=== PATIENT | male | born 1980 | race Caucasian/White ===

== ENCOUNTER 2021-05-14 09:40 | Inpatient (IN) | payer OTHER ==
[2021-05-14 10:54] LABS: Urine Blood Negative (Negative); Urine Glucose Negative (Negative); Urine Protein Negative (Negative); Urine Specific Gravity >=1.030 (1.005-1.030); Urine pH 6.5 (5.0-7.0)
[2021-05-14] MEDS ORDERED: NA CHLORIDE 0.9% 1,000 ML ONE ×2 (11:45→14:02)
[2021-05-14] MEDS ORDERED: MORPHINE 4 MG/ML SYR ONE ×2 (11:45→14:02)
[2021-05-14] MEDS ORDERED: ONDANSETRON 4 MG/2 ML VIAL ONE ×2 (11:45→20:30)
[2021-05-14 13:22] LABS: Absolute Lymphocytes (CBC) 1.6 K/uL (0.7-4.9); Basophils % 0.9 % (0-1.3); Hematocrit 38.5 % (39.6-49.0); Lymphocytes % 20.8 % (15.3-44.8); MPV 9.7 fL (7.6-11.3); RBC Red Blood Cell Count 4.29 M/uL (4.33-5.43)
--- NOTE | 2021-05-14 13:22 | RAD REPORT ---
EXAM DESCRIPTION: CT - Abdomen Pelvis W Contrast - 05/14/2021 1:07 pm CLINICAL HISTORY: ABD PAIN COMPARISON: No comparisons TECHNIQUE: Biphasic, helical CT imaging of the abdomen and pelvis was performed following 100 ml non -ionic IV contrast. Oral contrast administered. All CT scans are performed using dose optimization technique as appropriate and may include automated exposure control or mA/KV adjustment according to patient size. FINDINGS: No suspicious findings in the lung bases. Liver shows diffuse fatty infiltration with no focal lesion. No portal vein abnormality. Gallbladder and biliary tree show no suspicious findings. No splenic abnormality. No mass of the pancreatic paren chyma identified. Mild congestion or edema changes are present in the fatty tissues adjacent to the uncinate process of the pancreas and third portion of the duodenum. No peripancreatic solid or cystic mass identified. Symmetric renal function is seen with no hydronephrosis or suspicious renal mass. No pyelonephritis o r acute parenchymal process. No bladder abnormalities. No adrenal abnormalities. Gastric sleeve surgical changes are noted. No gastric abnormality seen. Small bowel loops are not dil ated. No wall thickening or adjacent stranding seen in the small bowel except for the above-mentioned duodenal change. Appendix is normal. Oral contrast has reached the distal rectum. Tortuous and redun dant sigmoid colon noted. Villatoro of the colon are mildly prominent in the rectum and distal sigmoid co maxine probably from incomplete distention. No free air, free fluid or pneumatosis. No large hernia, mass or bulky lymphadenopathy. Patient sparks s had minimal fat only right inguinal hernia. No suspicious bony findings. IMPRESSION: Stranding is seen in the fatty tissues adjacent to the uncinate process of the pancreas and adjacent third portion duodenum. Mild pancreatitis with secondary involvement of the duodenum wo uld be more common than primary duodenitis. Correlation is needed with clinical or laboratory finding s. There is minimal prominence of the distal sigmoid and rectal villatoro probably from incomplete distentio n rather than colitis. Diffuse fatty infiltration of the liver.
[2021-05-14 13:23] LABS: Albumin 3.2 g/dL (3.4-5.0); Bilirubin Direct 0.2 mg/dL (0-0.2); Bilirubin Total 1.5 mg/dL (0.2-1.0); Protein, Total 6.9 g/dL (6.4-8.2)
[2021-05-14 13:26] LABS: Potassium 4.6 mmol/L (3.5-5.1)
[2021-05-14 13:30] LABS: Blood Morphology Comment NOT SEEN (NOT SEEN); Platelet Estimate DECR
--- NOTE | 2021-05-14 13:45 | ER ---
Nurse's Notes [facility] Name: Aaron Hernandez Age: 40 yrs Sex: Male : 1980 Arrival Date: 05/14/2021 Time: 09:43 Bed 24 Private MD: Diagnosis: Acute pancreatitis without necrosis or infection, unspecified Presentation: 05/14 09:54 Chief complaint: Patient states: ABD pain began yesterday, states has been constipated vg1 for the past two days. States pain is intermittent. Denies diarrhea but states NV. Also patient stated has had a cough x1 month. Coronavirus screen: Vaccine status: Patient reports receiving the 2nd dose of the covid vaccine. Client presents with at least one sign or symptom that may indicate coronavirus-19. Standard/surgical mask placed on the client. Ebola Screen: Patient negative for fever greater than or equal to 101.5 degrees Fahrenheit, and additional compatible Ebola Virus Disease symptoms. Initial Sepsis Screen: Does the patient meet any 2 criteria? No. Patient's initial sepsis screen is negative. Does the patient have a suspected source of infection? No. Patient's initial sepsis screen is negative. Risk Assessment: Do you want to hurt yourself or someone else? Patient reports no desire to harm self or others. Onset of symptoms was May 12, 2021. 09:54 Method Of Arrival: Ambulatory vg1 09:54 Acuity: ALIYAH 3 vg1 Triage Assessment: 09:57 General: Appears in no apparent distress. uncomfortable, Behavior is calm, cooperative. vg1 Pain: Complains of pain in abdomen. GI: Abdomen is non-distended. Historical: - Allergies: 09:57 No Known Allergies; vg1 - Home Meds: 09:57 Protonix Oral [Active]; Debra Oral [Active]; Lisinopril Oral [Active]; ibuprofen 600 vg1 mg Oral tab PRN [Active]; - PMHx: 09:57 Hypertensive disorder; Gastritis; vg1 - Immunization history:: Adult Immunizations up to date, Client reports receiving the 2nd dose of the Covid vaccine. - Social history:: Smoking status: Patient denies any tobacco usage or history of. Screenin:51 Abuse screen: Denies threats or abuse. Denies injuries from another. Nutritional bc5 screening: No deficits noted. Tuberculosis screening: No symptoms or risk factors identified. Fall Risk No fall in past 12 months (0 pts). No secondary diagnosis (0 pts). IV access (20 points). Ambulatory Aid- None/Bed Rest/Nurse Assist (0 pts). Gait- Normal/Bed Rest/Wheelchair (0 pts) Mental Status- Oriented to own ability (0 pts). Total Bonds Fall Scale indicates No Risk (0-24 pts). Assessment: 19:52 GI: Bowel sounds present X 4 quads. Abd is non tender X 4 quads. bc5 20:42 Reassessment: Report called to Bud DOMINGO, Pt to room 222. bc5 Vital Signs: 09:54 BP 138 / 96; Pulse 84; Resp 18; Temp 97.6; Pulse Ox 100% ; Weight 97.52 kg; Height 6 vg1 ft. 3 in. (190.50 cm); Pain 4/10; 19:53 BP 135 / 89; Pulse 81; Resp 17; Temp 98(O); Pulse Ox 100% on R/A; Pain 7/10; bc5 09:54 Body Mass Index 26.87 (97.52 kg, 190.50 cm) vg1 ED Course: 09:43 Patient arrived in ED. rg4 09:56 Triage completed. vg1 09:57 Arm band placed on. vg1 10:04 Artie Bacon NP is PHCP. pm1 10:04 Lambert Vásquez MD is Attending Physician. pm1 11:04 Jayda Charles, JOSE L is Primary Nurse. es2 11:59 Lab(s) recollected, by me, sent to lab. dh3 13:06 CT Abd/Pelvis - PO and IV Contrast In Process Unspecified. EDMS 13:45 Sheila Cuellar MD is Hospitalizing Provider. pm1 15:36 C-Reactive Protein Sent. es2 19:52 Patient has correct armband on for positive identification. Call light in reach. bc5 19:52 No provider procedures requiring assistance completed. bc5 05/15 07:51 Primary Nurse role handed off by Jayda Charles, JOSE L bd 08:08 Sabiha Larios, JOSE L is Primary Nurse. oh Administered Medications: 05/14 11:23 Drug: morphine 4 mg Route: IVP; Site: left forearm; tr6 11:23 Drug: Zofran (Ondansetron) 4 mg Route: IVP; Site: left forearm; tr6 11:23 Drug: NS 0.9% 1000 ml Route: IV; Rate: 1000 ml; Site: left forearm; tr6 13:25 CANCELLED (Physician Discretion): ProTONIX (pantoprazole) 40 mg IVP once pm1 13:26 Not Given (Physician Discretion): ProTONIX (pantoprazole) 8 mg/hr IV at 25 ml/hr pm1 continuous; (Standard dilution is 80 mg in 250 mL NS) 13:41 Drug: morphine 4 mg {Note: Rass 0.} Route: IVP; Site: left forearm; es2 13:41 Drug: NS 0.9% 1000 ml Route: IV; Rate: 125 ml/hr; Site: left forearm; es2 15:36 Follow up: Response: No adverse reaction; IV Status: IV converted to saline lock es2 Outcome: 13:45 Decision to Hospitalize by Provider. pm1 20:43 Patient left the ED. bc5 05/15 19:49 [facility] left the [facility]. [facility] Signatures: Dispatcher [employer] EDMS Marika Galaviz Patrick, ROVERTO FOREIGN BROADCAST SPECIALIST pm1 Susan Nails 4 Carol Cervantes 3 Angélica Nails RN RN vg1 Candi Hartman RN RN tr6 Tennille Velazquez RN RN bc5 Jayda Charles RN RN es2 Sabiha Larios RN RN oh
--- NOTE | 2021-05-14 13:45 | EDPHYS ---
Physician Documentation [facility] Name: Aaron Hernandez Age: 40 yrs Sex: Male : 1980 Arrival Date: 05/14/2021 Time: 09:43 Bed 24 Private MD: ED Physician Lambert Vásquez HPI: 05/14 12:26 This 40 yrs old Male presents to ER via Ambulatory with complaints of pm1 Abdominal Pain. 12:26 The patient presents with abdominal pain in the left upper quadrant, in the left lower pm1 quadrant. Onset: The symptoms/episode began/occurred yesterday. The symptoms do not radiate. Associated signs and symptoms: Pertinent positives: constipation, Pertinent negatives: nausea and vomiting, dysuria, fever. The symptoms are described as achy. Modifying factors: The symptoms are alleviated by nothing, the symptoms are aggravated by nothing. Severity of pain: in the emergency department the pain is actually worse. The patient has not experienced similar symptoms in the past. The patient has not recently seen a physician. Historical: - Allergies: 09:57 No Known Allergies; vg1 - Home Meds: :57 Protonix Oral [Active]; Debra Oral [Active]; Lisinopril Oral [Active]; ibuprofen 600 vg1 mg Oral tab PRN [Active]; - PMHx: 09:57 Hypertensive disorder; Gastritis; vg1 - Immunization history:: Adult Immunizations up to date, Client reports receiving the 2nd dose of the Covid vaccine. - Social history:: Smoking status: Patient denies any tobacco usage or history of. ROS: 12:26 Constitutional: Negative for fever, chills, and weight loss, Cardiovascular: Negative pm1 for chest pain, palpitations, and edema, Respiratory: Negative for shortness of breath, cough, wheezing, and pleuritic chest pain. 12:26 Back: Negative for injury and pain, : Negative for injury, bleeding, discharge, and swelling, MS/Extremity: Negative for injury and deformity, Skin: Negative for injury, rash, and discoloration, Neuro: Negative for headache, weakness, numbness, tingling, and seizure. 12:26 Abdomen/GI: Positive for abdominal pain, constipation, Negative for nausea, vomiting, and diarrhea. 12:26 All other systems are negative. Exam: 12:26 Constitutional: This is a well developed, well nourished patient who is awake, alert, pm1 and in no acute distress. Head/Face: Normocephalic, atraumatic. 12:26 Skin: Warm, dry with normal turgor. Normal color with no rashes, no lesions, and no evidence of cellulitis. MS/ Extremity: Pulses equal, no cyanosis. Neurovascular intact. Full, normal range of motion. 12:26 Eyes: Exam is negative for acute changes, Extraocular movements: no acute changes, Conjunctiva: no acute changes, no injection. 12:26 ENT: Exam is negative for acute changes, Mouth: no acute changes, Lips: normal, moist, Oral mucosa: normal, pink and intact, moist. 12:26 Cardiovascular: Exam negative for acute changes, Rate: normal, Rhythm: regular, Pulses: no pulse deficits are appreciated. 12:26 Respiratory: Exam negative for acute changes, respiratory distress, shortness of breath. 12:26 Abdomen/GI: Inspection: abdomen appears normal, Palpation: soft, in all quadrants, mild abdominal tenderness, in the left upper quadrant, moderate abdominal tenderness, in the left lower quadrant. 12:26 Neuro: Exam negative for acute changes, Orientation: is normal, Mentation: is normal, Motor: is normal, moves all fours. Vital Signs: 09:54 BP 138 / 96; Pulse 84; Resp 18; Temp 97.6; Pulse Ox 100% ; Weight 97.52 kg; Height 6 vg1 ft. 3 in. (190.50 cm); Pain 4/10; 19:53 BP 135 / 89; Pulse 81; Resp 17; Temp 98(O); Pulse Ox 100% on R/A; Pain 7/10; bc5 09:54 Body Mass Index 26.87 (97.52 kg, 190.50 cm) vg1 MDM: 10:12 Patient medically screened. pm1 10:12 Data reviewed: vital signs. Data interpreted: Pulse oximetry: on room air is 100 %. pm1 Interpretation: normal. 13:43 Counseling: I had a detailed discussion with the patient and/or guardian regarding: the pm1 historical points, exam findings, and any diagnostic results supporting the discharge/admit diagnosis, lab results, radiology results, the need for further work-up and treatment in the hospital. 13:43 Physician consultation: Hellen Amie regarding admission, patient's condition, and will pm1 see patient in ED. 05/14 10:04 Order name: Basic Metabolic Panel; Complete Time: 13:39 pm1 05/14 10:04 Order name: CBC with Diff; Complete Time: 13:39 pm1 05/14 10:04 Order name: Hepatic Function; Complete Time: 13:39 pm1 05/14 10:04 Order name: Lipase; Complete Time: 13:39 pm1 05/14 10:54 Order name: Urine Dipstick-Ancillary; Complete Time: 10:55 EDMS 05/14 13:22 Order name: Manual Differential; Complete Time: 13:39 EDMS 05/14 14:15 Order name: Amylase; Complete Time: 17:50 EDMS 05/14 14:16 Order name: CBC with Automated Diff EDMS 05/14 14:16 Order name: CBC with Automated Diff; Complete Time: 10:34 EDMS 05/14 14:16 Order name: Comprehensive Metabolic Panel EDMS 05/14 14:16 Order name: Comprehensive Metabolic Panel; Complete Time: 10:34 EDMS 05/14 14:16 Order name: Lipid Profile EDMS 05/14 14:16 Order name: Lipid Profile EDMS 05/14 14:16 Order name: Protime (+INR) EDMS 05/14 14:16 Order name: Protime (+INR); Complete Time: 10:34 EDMS 05/14 14:16 Order name: PTT, Activated Partial Thromb EDMS 05/14 14:16 Order name: PTT, Activated Partial Thromb; Complete Time: 10:34 EDMS 05/14 14:17 Order name: Lactic Dehydrogenase; Complete Time: 17:50 EDMS 05/14 14:17 Order name: C-Reactive Protein; Complete Time: 17:50 EDMS 05/14 14:17 Order name: Lipid Profile EDMS 05/14 14:24 Order name: COVID-19 : Document "Date of Symptom Onset" if Symptomatic. eb 05/14 17:28 Order name: Glucose, Ancillary Testing; Complete Time: 17:35 EDMS 05/14 17:44 Order name: Magnesium; Complete Time: 17:50 EDMS 05/14 17:52 Order name: Lipid Profile; Complete Time: 10:34 EDMS 05/14 18:02 Order name: LDL, Direct; Complete Time: 10:34 EDMS 05/14 19:32 Order name: SARS-COV-2 RT PCR; Complete Time: 10:34 EDMS 05/15 01:59 Order name: Glucose, Ancillary Testing; Complete Time: :34 EDMS 05/15 03:24 Order name: Glucose, Ancillary Testing; Complete Time: :34 EDMS 05/15 04:30 Order name: Glucose, Ancillary Testing; Complete Time: 10:34 EDMS 05/15 05:23 Order name: Glucose, Ancillary Testing; Complete Time: 10:34 EDMS 05/14 10:04 Order name: IV Saline Lock; Complete Time: 11:03 pm1 05/14 10:04 Order name: Labs collected and sent; Complete Time: 11:03 pm1 05/14 10:15 Order name: Urine Dipstick-Ancillary (obtain specimen); Complete Time: 11:03 pm1 05/14 10:15 Order name: CT Abd/Pelvis - PO and IV Contrast; Complete Time: 13:23 pm1 05/14 13:29 Order name: NPO; Complete Time: 13:50 pm1 05/14 14:16 Order name: NPO; Complete Time: 19:25 EDMS 05/15 06:22 Order name: Glucose, Ancillary Testing; Complete Time: 10:34 EDMS 05/15 07:06 Order name: CREATININE WHOLE BLOOD; Complete Time: 10:34 EDMS 05/15 07:24 Order name: Glucose, Ancillary Testing; Complete Time: :34 EDMS 05/15 08:00 Order name: Lipid Profile; Complete Time: 10:34 EDMS 05/15 08:11 Order name: LDL, Direct; Complete Time: 10:34 EDMS 05/15 08:46 Order name: Glucose, Ancillary Testing; Complete Time: 10:34 EDMS 05/15 09:42 Order name: Lipase; Complete Time: 10:34 EDMS 05/15 10:09 Order name: Glucose, Ancillary Testing; Complete Time: 10:34 EDMS 05/15 11:41 Order name: Glucose, Ancillary Testing; Complete Time: 13:18 EDMS 05/15 14:00 Order name: Glucose, Ancillary Testing; Complete Time: 14:05 EDMS 05/15 15:21 Order name: Glucose, Ancillary Testing; Complete Time: 16:35 EDMS 05/15 17:06 Order name: Glucose, Ancillary Testing; Complete Time: 17:15 EDMS 05/15 17:43 Order name: Triglycerides Level EDMS 05/15 17:49 Order name: Lipase EDMS 05/15 17:52 Order name: LDL, Direct EDMN 05/15 19:00 Order name: Glucose, Ancillary Testing EDMS Administered Medications: 11:23 Drug: morphine 4 mg Route: IVP; Site: left forearm; tr6 11:23 Drug: Zofran (Ondansetron) 4 mg Route: IVP; Site: left forearm; tr6 11:23 Drug: NS 0.9% 1000 ml Route: IV; Rate: 1000 ml; Site: left forearm; tr6 13:25 CANCELLED (Physician Discretion): ProTONIX (pantoprazole) 40 mg IVP once pm1 13:26 Not Given (Physician Discretion): ProTONIX (pantoprazole) 8 mg/hr IV at 25 ml/hr pm1 continuous; (Standard dilution is 80 mg in 250 mL NS) 13:41 Drug: morphine 4 mg {Note: Rass 0.} Route: IVP; Site: left forearm; es2 13:41 Drug: NS 0.9% 1000 ml Route: IV; Rate: 125 ml/hr; Site: left forearm; es2 15:36 Follow up: Response: No adverse reaction; IV Status: IV converted to saline lock es2 Disposition Summary: 05/14/21 13:45 Hospitalization Ordered Hospitalization Status: Inpatient Admission pm1 Provider: Sheila Cuellar pm1 Condition: Stable pm1 Problem: new pm1 Symptoms: have improved pm1 Bed/Room Type: Standard pm1 Location: Telemetry/MedSurg (Inpatient)(05/15/21 19:09) Room Assignment: 421(05/15/21 19:09) Diagnosis - Acute pancreatitis without necrosis or infection, unspecified pm1 Forms: - Medication Reconciliation Form pm1 - SBAR form pm1 Addendum: 05/18/2021 01:57 Co-signature as Attending Physician, Lambert Vásquez MD I agree with the assessment and r n plan of care. Attestation: The patient's history, exam findings, diagnostics, and a summary of any interventions or procedures was reviewed in detail with Artie Bacon NP. Signatures: Dispatcher [facility] Gracie Farrell RN RN mw Nieto, Roman, MD MD rn Marinas, Patrick, INVENTORY SPECIALIST INVENTORY SPECIALIST pm1 Angélica Nails RN RN vg1 Romero Cheema tt3 Candi Hartman RN RN tr6 Jayda Charles RN RN es2 Corrections: (The following items were deleted from the chart) 05/14 13:14 13:12 Abdomen/GI: Rectal exam: rectal tone normal, Stool: brown, guaiac positive, pm1 tenderness, is not appreciated, pm1 13:25 13:12 ProTONIX (pantoprazole) 40 mg IVP once ordered. pm1 pm1 19:39 13:45 pm1 mw 05/15 00:51 05/14 13:45 Telemetry/MedSurg (Inpatient) pm1 tt3 05/15 00:51 05/14 19:39 222 mw tt3 05/15 19:09 00:51 BR ER HOLD tt3 mw 19: 00:51 ERHOLD- tt3 mw
--- NOTE | 2021-05-14 14:05 | P.HP ---
Certification for Inpatient With expected LOS: >2 Midnights Patient will require the following post-hospital care: None Practitioner: I am a practitioner with admitting privileges, knowledge of patient current condition, hospital course, and medical plan of care. Services: Services provided to patient in accordance with Admission requirements found in Title 42 Section 412.3 of the Code of Federal Regulations <Hellen Holloway - Last Filed: 05/14/21 15:34> Patient History Date of Service: 05/14/21 Primary Care Provider: MILAGRO Reason for admission: abdominal pain History of Present Illness: 40-year-old white male with past medical history of hyperlipidemia, hypertension, hypertriglyceridemia, acute pancreatitis in September 2019 who presented to the ED after 1 day of severe abdominal pain, nausea, vomiting. He stated that yesterday after being in his usual state of health he began to experience sharp left upper quadrant abdominal pain that radiated to the left lower quadrant. The pain waxed and waned and was about a 7/10 and more intense this morning than yesterday. The pain was sudden and he took ibuprofen with no relief. His abdominal pain continued and he developed nausea and then vomited 3 times yesterday before going to sleep. Overnight his abdominal pain worsen and he decided to come to ED for further evaluation. He was able to drink water and keep it down. He denies chest pain, fever, shortness of breath, melena, hematochezia, diarrhea. He endorses mild constipation. He has history of acute pancreatitis last year September 2019 before the pandemic started. He reports history of high cholesterol, high triglycerides for which he does not take any medication. He was trying to control his cholesterol with diet and exercise. Denies smoking or alcohol. Upon arrival to the ED, Mr. Hernandez was placed on IV fluids, given morphine 2 mg, Zofran 4 mg. Radiological images were obtained through an abdominal CT scan which revealed mild pancreatitis, diffuse fatty infiltration of the liver. His lab work was noted for lipase of 2557, elevated liver enzymes. He will be admitted to medicine floor for further evaluation. He is fully vaccinated against Covid. 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 <Hellen Holloway - Last Filed: 05/14/21 15:34> Date of Service: 05/14/21 <Sheila Cuellar - Last Filed: 05/15/21 04:18> Review of Systems General: Unremarkable Eyes: Unremarkable ENT: Unremarkable Respiratory: Unremarkable Cardiovascular: Unremarkable Gastrointestinal: Nausea, Vomiting, Abdominal Pain, No Distention Musculoskeletal: Unremarkable Integumentary: Unremarkable Neurological: Unremarkable <Hellen Holloway - Last Filed: 05/14/21 15:34> Physical Examination - Physical Exam General: Alert, In no apparent distress, Oriented x3, Cooperative HEENT: Atraumatic, Normocephalic, PERRLA, Mucous membr. moist/pink, EOMI, Sclerae nonicteric Neck: Supple, 2+ carotid pulse no bruit, JVD not distended Respiratory: Clear to auscultation bilaterally, Normal air movement Cardiovascular: No edema, Normal pulses, Regular rate/rhythm Gastrointestinal: Normal bowel sounds, Non-distended, No ascites, No masses, No rebound, Tenderness (No evidence of Mejia's or Kranthi sign), Guarding Musculoskeletal: No clubbing, No swelling, No contractures, No erythema, No tenderness, No warmth Integumentary: No rashes, No breakdown, No significant lesion, No tenderness/swelling Neurological: Normal gait, Normal speech, Normal strength at 5/5 x4 extr - Studies Laboratory Data (last 24 hrs) 05/14/21 12:40: WBC 7.80, Hgb 12.6 L, Hct 38.5 L, Plt Count 126 L 05/14/21 12:40: Sodium 138, Potassium 4.6, BUN 16, Creatinine 0.94, Glucose 104, Total Bilirubin 1.5 H, AST 362 H*, ALT 154 H, Alkaline Phosphatase 87, Lipase 2557 H <AmieHellen - Last Filed: 05/14/21 15:34> - Studies Laboratory Data (last 24 hrs) 05/14/21 21:47: Triglycerides 3832 H, LDL Cholesterol Direct 157 H, Lipase 3473 H 05/14/21 16:29: Magnesium Cancelled, Triglycerides > 4000 H, Cholesterol 420 H, LDL Cholesterol Direct 150 H, HDL Cholesterol 29 L, Cholesterol/HDL Ratio 14.48 05/14/21 16:29: Magnesium 1.8, Triglycerides Cancelled, Cholesterol Cancelled, HDL Cholesterol Cancelled, Cholesterol/HDL Ratio Cancelled, Amylase 157 H 05/14/21 12:40: WBC 7.80, Hgb 12.6 L, Hct 38.5 L, Plt Count 126 L 05/14/21 12:40: Sodium 138, Potassium 4.6, BUN 16, Creatinine 0.94, Glucose 104, Total Bilirubin 1.5 H, AST 362 H*, ALT 154 H, Alkaline Phosphatase 87, Lipase 2557 H <Sheila Cuellar - Last Filed: 05/15/21 04:18> Assessment and Plan - Plan Assessment: Mr. Hernandez is a 40-year-old white male with past medical history of hypertension, hyperlipidemia, hypertriglyceridemia, history of acute pancreatitis September 2019 presenting for abdominal pain. His work-up is noted for acute pancreatitis with elevated lipase and liver enzyme. Plan: 1. Acute pancreatitis: CT scan noted for mild pancreatitis, fatty liver. No evidence of cholelithiasis, cholangitis T bili elevated NPO for now Monitor I's and O's IV fluids with lactated Ringer's Pain control with morphine as needed Nausea control with Zofran as needed GI consult placed. Awaiting recommendations LDH, CRP pending 2. Hyperlipidemia: Lipid panel pending May need to start on statin or fenofibrate and continue outpatient [employer] on low-fat diet 3. Elevated liver enzymes: Likely secondary to fatty liver disease GI consult placed. Awaiting recommendations PT/PTT/INR pending 4. Hypertension: Continue home meds Discharge Plan: Home Plan to discharge in: 48 Hours - Advance Directives Does patient have a Living Will: No Does patient have a Durable POA for Healthcare: No <Hellen Holloway - Last Filed: 05/14/21 15:34> Date of Service: 05/14/21 Subjective: Agree with HPI as mentioned above Physical Examination: Vitals: Afebrile vital signs are stable Physical exam: Cardiovascular: Within normal limits. Lungs: Within normal limits Abdomen: Epigastric tenderness Neuro: Awake, alert, oriented to person place and time Assessment: 1. Acute pancreatitis secondary to hypertriglyceridemia 2. Elevated LFTs Plan: 1. Continue with current plan of care with aggressive IV hydration and pain control 2. Keep in ICU on insulin drip 3. Monitor triglyceride levels every 6 hr 4. Monitor lipase daily 5. Accu-Cheks q.1 hr 6. Continue with fish oil/will hold Lopid if LFTs continue to rise 7. GI and DVT prophylaxis <Sheila Cuellar - Last Filed: 05/15/21 04:18>
[2021-05-14] MEDS ORDERED: MORPHINE 2 MG/ML SYR IV PRN (14:06)
[2021-05-14] MEDS ORDERED: Ringers Lactate 1,000 ML IV SCH ×2 (15:00→19:53)
[2021-05-14 15:23] VITALS: BMI 26.9
[2021-05-14] MEDS ORDERED: Ringers Lactate 1,000 ML IV ONE (15:54)
[2021-05-14] MEDS ORDERED: PNEUMOCOCCAL VACCINE 0.5 ML IMVAC ONE (17:00)
[2021-05-14] MEDS ORDERED: INFLUENZA VACCINE (for 6+ mo) 0.5 ML DOSE IMVAC ONE ×2 (17:00→18:14)
[2021-05-14 17:43] LABS: Amylase 157 U/L (25-115)
[2021-05-14 17:44] LABS: C-Reactive Protein < 2.90 mg/L (<3.00); Magnesium 1.8 mg/dL (1.8-2.4)
[2021-05-14 17:51] LABS: HDL Cholesterol 29 mg/dL (40-60)
[2021-05-14 18:02] LABS: LDL, Direct 150 mg/dL (100-129)
[2021-05-14] MEDS ORDERED: MORPHINE 2 MG/ML SYR ONE ×2 (18:18→20:30)
[2021-05-14] MEDS ORDERED: MORPHINE 4 MG/ML SYR IV ONE (19:34)
[2021-05-14] MEDS ORDERED: D50W 25 GM/50 ML SYRINGE IV PRN (19:54)
[2021-05-14] MEDS ORDERED: GLUCAGON 1 MG/VIAL IM PRN (19:54)
[2021-05-14] MEDS ORDERED: INSULIN -REGULAR HUMAN 100 UNIT in NA CHLORIDE 0.9% 100 ML IV SCH (20:00)
[2021-05-14] MEDS: ONDANSETRON 4 MG/2 ML VIAL IV PRN (20:09)
[2021-05-14] MEDS: D5 0.9 NS 1,000 ML IV SCH (22:13)
[2021-05-14] MEDS: gemfibroziL 600 MG TAB PO SCH (22:13)
[2021-05-14 22:23] LABS: Lipase 3473 U/L (73-393)
[2021-05-14 22:41] LABS: LDL, Direct 157 mg/dL (100-129)
[2021-05-14] MEDS: MORPHINE 4 MG/ML SYR IV PRN (23:59)
[2021-05-15] MEDS: D5 0.9 NS 1,000 ML IV SCH ×4 (01:00→20:18)
[2021-05-15] MEDS ORDERED: INSULIN -REGULAR HUMAN 50 UNIT/0.5 ML ML ONE (01:41)
[2021-05-15] MEDS ORDERED: NA CHLORIDE 0.9% 100 ML ONE (01:42)
[2021-05-15] MEDS: DOCOSAHEXANOIC AC/EPA 1000 MG PO SCH ×4 (01:50→20:18)
[2021-05-15] MEDS ORDERED: INSULIN -REGULAR HUMAN 100 UNIT in NA CHLORIDE 0.9% 100 ML IV SCH ×3 (01:57→07:34)
[2021-05-15] MEDS: MORPHINE 4 MG/ML SYR IV PRN (04:17)
[2021-05-15] MEDS: ONDANSETRON 4 MG/2 ML VIAL IV PRN ×3 (04:18→21:41)
[2021-05-15] MEDS ORDERED: FAMOTIDINE 20 MG/2 ML VIAL IV SCH ×2 (04:20→09:00)
[2021-05-15] MEDS ORDERED: ONDANSETRON 4 MG/2 ML VIAL ONE ×2 (04:33→10:13)
[2021-05-15] MEDS ORDERED: MORPHINE 4 MG/ML SYR ONE (04:33)
[2021-05-15 04:38] LABS: Absolute Lymphocytes (CBC) 1.4 K/uL (0.7-4.9); Basophils % 0.9 % (0-1.3); Hematocrit 35.2 % (39.6-49.0); Lymphocytes % 24.5 % (15.3-44.8); MPV 8.2 fL (7.6-11.3)
[2021-05-15 04:43] LABS: Protime INR 1.05
[2021-05-15] MEDS ORDERED: FAMOTIDINE 20 MG/2 ML VIAL IV ONE ×2 (04:54→11:59)
[2021-05-15] MEDS ORDERED: D5 0.9 NS 1,000 ML IV ONE ×2 (05:15→11:59)
[2021-05-15] MEDS ORDERED: SODIUM CHLORIDE 0.9% 10ML INJ IV PRN (06:36)
[2021-05-15 07:57] LABS: HDL Cholesterol 24 mg/dL (40-60)
[2021-05-15 08:11] LABS: LDL, Direct 148 mg/dL (100-129)
[2021-05-15] MEDS ORDERED: HYDROMORPHONE HCL 1 MG/ML INJ ONE ×3 (08:18→17:29)
[2021-05-15] MEDS: HYDROMORPHONE HCL 1 MG/ML INJ IV PRN ×4 (08:22→21:41)
[2021-05-15] MEDS: gemfibroziL 600 MG TAB PO SCH ×2 (09:00→20:16)
[2021-05-15] MEDS: PANTOPRAZOLE 40 MG INJ IVP SCH (09:00)
[2021-05-15] MEDS: FOLIC ACID 1 MG in NA CHLORIDE 0.9% 50 ML IV SCH (09:00)
[2021-05-15] MEDS: THIAMINE 200 MG/2 ML INJ IVP SCH (09:00)
[2021-05-15] MEDS ORDERED: PANTOPRAZOLE 40 MG INJ ONE (09:17)
[2021-05-15] MEDS ORDERED: FOLIC ACID 5 MG/ML VIAL ONE (09:19)
[2021-05-15] MEDS ORDERED: NA CHLORIDE 0.9% 50 ML ONE (09:19)
[2021-05-15] MEDS ORDERED: THIAMINE 200 MG/2 ML INJ ONE (09:25)
[2021-05-15 09:38] LABS: ALT/SGPT 100 U/L (12-78); Albumin 2.6 g/dL (3.4-5.0); Alkaline Phosphatase 64 U/L (45-117); BUN Blood Urea Nitrogen 8 mg/dL (7-18); Bicarbonate 24 mmol/L (21-32); Bilirubin Total 1.8 mg/dL (0.2-1.0); Glucose Level 134 mg/dL (74-106); Lipase 3755 U/L (73-393); Protein, Total 6.3 g/dL (6.4-8.2); Sodium Level 138 mmol/L (136-145)
[2021-05-15 09:39] LABS: Potassium 4.2 mmol/L (3.5-5.1)
[2021-05-15 09:40] LABS: AST/SGOT 172 U/L (15-37)
--- NOTE | 2021-05-15 16:54 | P.PN ---
Subjective Date of Service: 05/15/21 Primary Care Provider: [facility] Chief Complaint: abdominal pain Subjective: Improving Physical Examination - Vital Signs Temperature: 99.6 F Blood Pressure: 127/91 Pulse: 81 Respirations: 17 Pulse Ox (%): 95 - Studies Laboratory Data (last 24 hrs) 05/14/21 21:47: Triglycerides 3832 H, LDL Cholesterol Direct 157 H, Lipase 3473 H 05/14/21 16:29: Magnesium Cancelled, Triglycerides > 4000 H, Cholesterol 420 H, LDL Cholesterol Direct 150 H, HDL Cholesterol 29 L, Cholesterol/HDL Ratio 14.48 05/14/21 16:29: Magnesium 1.8, Triglycerides Cancelled, Cholesterol Cancelled, HDL Cholesterol Cancelled, Cholesterol/HDL Ratio Cancelled, Amylase 157 H Assessment & Plan Discharge Plan: Home Plan to discharge in: 72 Hours Physician Review Additional Text: COVID: Negative CT scan: COMPARISON: No comparisons TECHNIQUE: Biphasic, helical CT imaging of the abdomen and pelvis was performed following 100 ml non-ionic IV contrast. Oral contrast administered. All CT scans are performed using dose optimization technique as appropriate and may include automated exposure control or mA/KV adjustment according to patient size. FINDINGS: No suspicious findings in the lung bases. Liver shows diffuse fatty infiltration with no focal lesion. No portal vein abnormality. Gallbladder and biliary tree show no suspicious findings. No splenic abnormality. No mass of the pancreatic parenchyma identified. Mild congestion or edema changes are present in the fatty tissues adjacent to the uncinate process of the pancreas and third portion of the duodenum. No peripancreatic solid or cystic mass identified. Symmetric renal function is seen with no hydronephrosis or suspicious renal mass. No pyelonephritis or acute parenchymal process. No bladder abnormalities. No adrenal abnormalities. Gastric sleeve surgical changes are noted. No gastric abnormality seen. Small bowel loops are not dilated. No wall thickening or adjacent stranding seen in the small bowel except for the above-mentioned duodenal change. Appendix is normal. Oral contrast has reached the distal rectum. Tortuous and redundant sigmoid colon noted. Weston of the colon are mildly prominent in the rectum and distal sigmoid colon probably from incomplete distention. No free air, free fluid or pneumatosis. No large hernia, mass or bulky lymphadenopathy. Patient has had minimal fat only right inguinal hernia. No suspicious bony findings. IMPRESSION: Stranding is seen in the fatty tissues adjacent to the uncinate process of the pancreas and adjacent third portion duodenum. Mild pancreatitis with secondary involvement of the duodenum would be more common than primary duodenitis. Correlation is needed with clinical or laboratory findings. Physical Exam: GENERAL: The patient is a well-developed, well-nourished, in no apparent distre ss. Alert and oriented x3. VITAL SIGNS: Reviewed HEENT: Head is normocephalic and atraumatic. Extraocular muscles are intact. Pupils are equal, round, and reactive to light and accommodation. Nares appeared normal. Mouth is well hydrated and without lesions. Mucous membranes are moist. NECK: Supple. No carotid bruits. No lymphadenopathy or thyromegaly. LUNGS: Clear to auscultation. No crackles or wheezes are heard. HEART: Regular rate and rhythm, no appreciable gallops, rubs, murmurs or extra heart sounds ABDOMEN: Soft, nontender, and nondistended. Positive bowel sounds. No hepatosplenomegaly was noted. EXTREMITIES: Without any cyanosis, clubbing, rash, lesions or peripheral edema. NEUROLOGIC: The patient is oriented to person, place and time. Strength and sensation are grossly intact. Face is symmetric. SKIN: Normal color, turgor and temperature. No ulcerations or rashes noted. Impression: Acute hypertriglyceridemia pancreatitis Plan: Continue aggressive IV fluids. Continue to provide medication for pain. Patient remains on IV insulin. If improved will transition off insulin drip. Code Status: Full Code DVT prophylaxis: Lovenox Advanced Care Planning-30 minutes: Home at discharge Time Spent Managing Pts Care (In Minutes): 55
[2021-05-15] MEDS ORDERED: ENOXAPARIN 40 MG/0.4 ML SQ SCH (17:00)
[2021-05-15 17:52] LABS: LDL, Direct 76 mg/dL (100-129)
[2021-05-16] MEDS: HYDROMORPHONE HCL 0.5 MG/0.5 ML INJ IV PRN ×5 (01:52→19:59)
[2021-05-16] MEDS: D5 0.9 NS 1,000 ML IV SCH ×4 (01:55→20:00)
[2021-05-16 03:46] LABS: Basophils % 0.3 % (0-1.3); Lymphocytes % 18.8 % (15.3-44.8); MPV 8.8 fL (7.6-11.3); RBC Red Blood Cell Count 3.84 M/uL (4.33-5.43)
[2021-05-16 04:11] LABS: ALT/SGPT 76 U/L (12-78); Albumin 2.6 g/dL (3.4-5.0); Alkaline Phosphatase 58 U/L (45-117); BUN Blood Urea Nitrogen 3 mg/dL (7-18); Bicarbonate 27 mmol/L (21-32); Bilirubin Total 1.9 mg/dL (0.2-1.0); Glucose Level 121 mg/dL (74-106); Protein, Total 6.3 g/dL (6.4-8.2); Sodium Level 138 mmol/L (136-145)
[2021-05-16 04:22] LABS: AST/SGOT 99 U/L (15-37); Magnesium 1.8 mg/dL (1.8-2.4); Potassium 3.4 mmol/L (3.5-5.1)
[2021-05-16] MEDS: ONDANSETRON 4 MG/2 ML VIAL IV PRN ×2 (05:40→19:59)
[2021-05-16] MEDS ORDERED: MAGNESIUM SULFATE 1 gm IVPB 1 GM/100 ML BAG IV ONE (05:56)
--- NOTE | 2021-05-16 06:10 | P.PN ---
Subjective Date of Service: 05/16/21 Primary Care Provider: [facility] Chief Complaint: abdominal pain Subjective: Improving (No significant nausea or vomiting. Pain improved.) Physical Examination - Vital Signs Temperature: 98.6 F Blood Pressure: 138/90 Pulse: 74 Respirations: 18 Pulse Ox (%): 96 Assessment & Plan Discharge Plan: Home Plan to discharge in: 48 Hours Physician Review Additional Text: COVID: Negative CT scan: COMPARISON: No comparisons TECHNIQUE: Biphasic, helical CT imaging of the abdomen and pelvis was performed following 100 ml non-ionic IV contrast. Oral contrast administered. All CT scans are performed using dose optimization technique as appropriate and may include automated exposure control or mA/KV adjustment according to patient size. FINDINGS: No suspicious findings in the lung bases. Liver shows diffuse fatty infiltration with no focal lesion. No portal vein abnormality. Gallbladder and biliary tree show no suspicious findings. No splenic abnormality. No mass of the pancreatic parenchyma identified. Mild congestion or edema changes are present in the fatty tissues adjacent to the uncinate process of the pancreas and third portion of the duodenum. No peripancreatic solid or cystic mass identified. Symmetric renal function is seen with no hydronephrosis or suspicious renal mass. No pyelonephritis or acute parenchymal process. No bladder abnormalities. No adrenal abnormalities. Gastric sleeve surgical changes are noted. No gastric abnormality seen. Small bowel loops are not dilated. No wall thickening or adjacent stranding seen in the small bowel except for the above-mentioned duodenal change. Appendix is normal. Oral contrast has reached the distal rectum. Tortuous and redundant sigmoid colon noted. Weston of the colon are mildly prominent in the rectum and distal sigmoid colon probably from incomplete distention. No free air, free fluid or pneumatosis. No large hernia, mass or bulky lymphadenopathy. Patient has had minimal fat only right inguinal hernia. No suspicious bony findings. IMPRESSION: Stranding is seen in the fatty tissues adjacent to the uncinate process of the pancreas and adjacent third portion duodenum. Mild pancreatitis with secondary involvement of the duodenum would be more common than primary duodenitis. Correlation is needed with clinical or laboratory findings. Physical Exam: GENERAL: The patient is a well-developed, well-nourished, in no apparent distress. Alert and oriented x3. VITAL SIGNS: Reviewed HEENT: Neck supple LUNGS: Clear to auscultation. No crackles or wheezes are heard. HEART: Regular rate and rhythm, no appreciable gallops, rubs, murmurs or extra heart sounds ABDOMEN: Soft. Pain to the epigastric region improved. EXTREMITIES: Without any cyanosis, clubbing, rash, lesions or peripheral edema. NEUROLOGIC: The patient is oriented to person, place and time. Strength and sensation are grossly intact. Face is symmetric. SKIN: Normal color, turgor and temperature. No ulcerations or rashes noted. Impression: Acute hypertriglyceridemia pancreatitis Plan: Patient continues to improve. Triglyceride level below 800. Patient was transition off IV insulin. Will start clear liquid diet today. Encourage ambulation. Encourage incentive spirometer. Continue IV fluids. Will slowly advance diet over the next 24 to 48 hours. Continue treatment for hypertriglyceridemia. Code Status: Full Code DVT prophylaxis: Lovenox Advanced Care Planning-30 minutes: Home at discharge Time Spent Managing Pts Care (In Minutes): 55
[2021-05-16 07:42] LABS: LDL, Direct 96 mg/dL (100-129)
[2021-05-16] MEDS: PANTOPRAZOLE 40 MG INJ IVP SCH (08:45)
[2021-05-16] MEDS: DOCOSAHEXANOIC AC/EPA 1000 MG PO SCH ×3 (08:45→19:59)
[2021-05-16] MEDS: gemfibroziL 600 MG TAB PO SCH ×2 (08:46→19:59)
[2021-05-16] MEDS: LORATADINE 10 MG TAB PO SCH (08:47)
[2021-05-16] MEDS: FOLIC ACID 1 MG in NA CHLORIDE 0.9% 50 ML IV SCH (08:56)
[2021-05-16] MEDS: THIAMINE 200 MG/2 ML INJ IVP SCH (08:57)
[2021-05-16] MEDS: FLUTICASONE 50MCG NASAL SPRAY NAS SCH ×2 (09:16→20:00)
[2021-05-16] MEDS: HYDROMORPHONE HCL 1 MG/ML INJ IV PRN (13:56)
[2021-05-16] MEDS ORDERED: TRAMADOL HCL 50 MG TAB PO PRN (15:57)
[2021-05-16] MEDS: HYDROCODONE/APAP 7.5/325 MG TAB PO PRN (22:58)
[2021-05-17] MEDS: HYDROMORPHONE HCL 0.5 MG/0.5 ML INJ IV PRN ×2 (01:57→06:12)
[2021-05-17 03:50] LABS: Absolute Lymphocytes (CBC) 1.5 K/uL (0.7-4.9); Basophils % 0.4 % (0-1.3); Hematocrit 29.9 % (39.6-49.0); Lymphocytes % 25.5 % (15.3-44.8); MPV 8.5 fL (7.6-11.3); RBC Red Blood Cell Count 3.45 M/uL (4.33-5.43)
[2021-05-17 04:04] LABS: ALT/SGPT 58 U/L (12-78); AST/SGOT 65 U/L (15-37); Albumin 2.5 g/dL (3.4-5.0); Alkaline Phosphatase 52 U/L (45-117); BUN Blood Urea Nitrogen 3 mg/dL (7-18); Bicarbonate 28 mmol/L (21-32); Bilirubin Total 1.3 mg/dL (0.2-1.0); Glucose Level 94 mg/dL (74-106); Lipase 759 U/L (73-393); Potassium 3.1 mmol/L (3.5-5.1); Protein, Total 6.2 g/dL (6.4-8.2); Sodium Level 139 mmol/L (136-145)
[2021-05-17] MEDS: HYDROCODONE/APAP 7.5/325 MG TAB PO PRN (04:58)
[2021-05-17] MEDS: D5 0.9 NS 1,000 ML IV SCH ×3 (04:59→20:13)
--- NOTE | 2021-05-17 06:21 | P.PN ---
Subjective Date of Service: 05/17/21 Primary Care Provider: [facility] Chief Complaint: abdominal pain Subjective: Improving, Doing well Physical Examination - Vital Signs Temperature: 97.5 F Blood Pressure: 100/64 Pulse: 64 Respirations: 19 Pulse Ox (%): 96 Assessment & Plan Discharge Plan: Home Plan to discharge in: 24 Hours Physician Review Additional Text: COVID: Negative CT scan: COMPARISON: No comparisons TECHNIQUE: Biphasic, helical CT imaging of the abdomen and pelvis was performed following 100 ml non-ionic IV contrast. Oral contrast administered. All CT scans are performed using dose optimization technique as appropriate and may include automated exposure control or mA/KV adjustment according to patient size. FINDINGS: No suspicious findings in the lung bases. Liver shows diffuse fatty infiltration with no focal lesion. No portal vein abnormality. Gallbladder and biliary tree show no suspicious findings. No splenic abnormality. No mass of the pancreatic parenchyma identified. Mild congestion or edema changes are present in the fatty tissues adjacent to the uncinate process of the pancreas and third portion of the duodenum. No pe ripancreatic solid or cystic mass identified. Symmetric renal function is seen with no hydronephrosis or suspicious renal mass. No pyelonephritis or acute parenchymal process. No bladder abnormalities. No adrenal abnormalities. Gastric sleeve surgical changes are noted. No gastric abnormality seen. Small bowel loops are not dilated. No wall thickening or adjacent stranding seen in the small bowel except for the above-mentioned duodenal change. Appendix is normal. Oral contrast has reached the distal rectum. Tortuous and redundant sigmoid colon noted. Weston of the colon are mildly prominent in the rectum and distal sigmoid colon probably from incomplete distention. No free air, free fluid or pneumatosis. No large hernia, mass or bulky lymphadenopathy. Patient has had minimal fat only right inguinal hernia. No suspicious bony findings. IMPRESSION: Stranding is seen in the fatty tissues adjacent to the uncinate process of the pancreas and adjacent third portion duodenum. Mild pancreatitis with secondary involvement of the duodenum would be more common than primary duodenitis. Correlation is needed with clinical or laboratory findings. Physical Exam: GENERAL: The patient is a well-developed, well-nourished, in no apparent distress. Alert and oriented x3. VITAL SIGNS: Reviewed HEENT: Neck supple LUNGS: Clear to auscultation. No crackles or wheezes are heard. HEART: Regular rate and rhythm, no appreciable gallops, rubs, murmurs or extra heart sounds ABDOMEN: Soft. Pain to the epigastric region improved. EXTREMITIES: Without any cyanosis, clubbing, rash, lesions or peripheral edema. NEUROLOGIC: The patient is oriented to person, place and time. Strength and sensation are grossly intact. Face is symmetric. SKIN: Normal color, turgor and temperature. No ulcerations or rashes noted. Impression: Acute hypertriglyceridemia pancreatitis Elevated liver function related to above Anemia with thrombocytopenia Plan: Patient continues to improve. Triglycerides, liver function tests, and lipase improved. CBC remained stable along with thrombocytopenia. Patient tolerating clear liquid diet. Will advance to full liquid. Will provide stool softener. Continue to monitor closely. Will obtain hepatitis panel. If tolerating full liquid diet later today will advance to GI soft. Will provide medication for pain. Anticipate improvement and likely discharge within the next 24 hours. Code Status: Full Code DVT prophylaxis: Lovenox Advanced Care Planning-30 minutes: Home at discharge Time Spent Managing Pts Care (In Minutes): 55
[2021-05-17] MEDS: HYDROMORPHONE HCL 1 MG/ML INJ IV PRN ×4 (08:40→20:13)
[2021-05-17] MEDS: DOCOSAHEXANOIC AC/EPA 1000 MG PO SCH ×3 (08:41→20:13)
[2021-05-17] MEDS: gemfibroziL 600 MG TAB PO SCH ×2 (08:41→20:13)
[2021-05-17] MEDS: PANTOPRAZOLE 40 MG INJ IVP SCH (08:41)
[2021-05-17] MEDS: THIAMINE 200 MG/2 ML INJ IVP SCH (08:42)
[2021-05-17] MEDS: FLUTICASONE 50MCG NASAL SPRAY NAS SCH ×2 (08:42→21:00)
[2021-05-17] MEDS: LORATADINE 10 MG TAB PO SCH (08:42)
[2021-05-17] MEDS: DOCUSATE NA 100 MG CAP PO SCH (08:42)
[2021-05-17] MEDS ORDERED: POTASSIUM CL SA 10 MEQ TAB PO ONE (09:00)
[2021-05-17] MEDS: FOLIC ACID 1 MG in NA CHLORIDE 0.9% 50 ML IV SCH (09:15)
[2021-05-17] MEDS: ONDANSETRON 4 MG/2 ML VIAL IV PRN (10:03)
[2021-05-18] MEDS: HYDROMORPHONE HCL 1 MG/ML INJ IV PRN ×4 (00:12→11:40)
[2021-05-18] MEDS: ONDANSETRON 4 MG/2 ML VIAL IV PRN (01:49)
[2021-05-18] MEDS: D5 0.9 NS 1,000 ML IV SCH (01:49)
[2021-05-18 04:14] LABS: Absolute Lymphocytes (CBC) 1.2 K/uL (0.7-4.9); Basophils % 0.5 % (0-1.3); Hematocrit 29.1 % (39.6-49.0); Lymphocytes % 29.7 % (15.3-44.8); MPV 9.2 fL (7.6-11.3); RBC Red Blood Cell Count 3.33 M/uL (4.33-5.43)
[2021-05-18 04:35] LABS: ALT/SGPT 51 U/L (12-78); AST/SGOT 47 U/L (15-37); Albumin 2.5 g/dL (3.4-5.0); Alkaline Phosphatase 52 U/L (45-117); BUN Blood Urea Nitrogen 3 mg/dL (7-18); Bicarbonate 28 mmol/L (21-32); Glucose Level 99 mg/dL (74-106); Magnesium 1.9 mg/dL (1.8-2.4); Potassium 3.9 mmol/L (3.5-5.1); Protein, Total 6.2 g/dL (6.4-8.2); Sodium Level 139 mmol/L (136-145)
[2021-05-18] MEDS: THIAMINE 200 MG/2 ML INJ IVP SCH (08:06)
[2021-05-18] MEDS: gemfibroziL 600 MG TAB PO SCH (08:06)
[2021-05-18] MEDS: DOCOSAHEXANOIC AC/EPA 1000 MG PO SCH ×2 (08:06→14:06)
[2021-05-18] MEDS: LORATADINE 10 MG TAB PO SCH (08:06)
[2021-05-18] MEDS: PANTOPRAZOLE 40 MG INJ IVP SCH (08:06)
[2021-05-18] MEDS: DOCUSATE NA 100 MG CAP PO SCH (08:07)
[2021-05-18] MEDS: FLUTICASONE 50MCG NASAL SPRAY NAS SCH (08:09)
[2021-05-18] MEDS ORDERED: POTASSIUM CL SA 10 MEQ TAB PO ONE (09:00)
[2021-05-18] MEDS: FOLIC ACID 1 MG in NA CHLORIDE 0.9% 50 ML IV SCH (09:03)
[2021-05-18] MEDS ORDERED: POLYETHYL GLY 3350 17 GM/DOSE PO ONE (10:00)
[2021-05-18 11:04] VITALS: O2SAT 100
[2021-05-18 12:06] VITALS: BP 131/87; TEMP 98
--- NOTE | 2021-05-18 12:59 | P.DS ---
Admission Date: 05/14/21 Discharge Date: 05/18/21 Primary Care Provider: [facility] Disposition: ROUTINE DISCHARGE Discharge Condition: GOOD Reason for Admission: abdominal pain Consultations: none Procedures: COVID: Negative CT scan: COMPARISON: No comparisons TECHNIQUE: Biphasic, helical CT imaging of the abdomen and pelvis was performed following 100 ml non-ionic IV contrast. Oral contrast administered. All CT scans are performed using dose optimization technique as appropriate and may include automated exposure control or mA/KV adjustment according to patient size. FINDINGS: No suspicious findings in the lung bases. Liver shows diffuse fatty infiltration with no focal lesion. No portal vein abnormality. Gallbladder and biliary tree show no suspicious findings. No splenic abnormality. No mass of the pancreatic parenchyma identified. Mild congestion or edema changes are present in the fatty tissues adjacent to the uncinate process of the pancreas and third portion of the duodenum. No peripancreatic solid or cystic mass identified. Symmetric renal function is seen with no hydronephrosis or suspicious renal mass. No pyelonephritis or acute parenchymal process. No bladder abnormalities. No adrenal abnormalities. Gastric sleeve surgical changes are noted. No gastric abnormality seen. Small bowel loops are not dilated. No wall thickening or adjacent stranding seen in the small bowel except for the above-mentioned duodenal change. Appendix is normal. Oral contrast has reached the distal rectum. Tortuous and redundant sigmoid colon noted. Weston of the colon are mildly prominent in the rectum and distal sigmoid colon probably from incomplete distention. No free air, free fluid or pneumatosis. No large hernia, mass or bulky lymphadenopathy. Patient has had minimal fat only right inguinal hernia. No suspicious bony findings. IMPRESSION: Stranding is seen in the fatty tissues adjacent to the uncinate process of the pancreas and adjacent third portion duodenum. Mild pancreatitis with secondary involvement of the duodenum would be more common than primary duodenitis. Correlation is needed with clinical or laboratory findings. Medical Problem List: Acute hypertriglyceridemia pancreatitis Elevated liver function related to above Anemia with thrombocytopenia HTN GERD Brief History of Present Illness: 40-year-old male presented to the emergency room with epigastric abdominal pain. Patient reported nausea and vomiting. Patient found to have pancreatitis. Patient with elevated triglyceride level. Patient admitted for treatment. Hospital Course: Patient presented with abdominal pain secondary to acute hypertriglyceridemia pancreatitis. Patient also with elevated liver function. The patient was admitted for treatment. Patient required IV insulin to help treat his hypertriglyceridemia. The patient was transitioned off insulin and improved. Patient required medication for pain. Patient received IV fluids. Patient also had anemia with thrombocytopenia likely related to his pancreatitis. This has remained stable and improved. At discharge patient has tolerated his GI soft diet. Patient without significant pain. At discharge the patient will continue with Lopid 600 mg 1 pill twice daily and fish oil 2000 mg twice daily. Patient will be given a limited supply of tramadol 50 mg 1 pill 3 times a day as needed for pain. Patient should follow-up with PCP within 1 week to follow-up hospit alization. Recommend to establish care with GI as an outpatient to further address and monitor. Recommend to recheck fasting lipid panel and CMP in 1 to 2 weeks to monitor his progress. Patient with GERD. At discharge patient will continue with Protonix 40 mg daily. Patient with history of hypertension. Patient did not require medication at this time. Recommend to hold lisinopril. Recommend to monitor blood pressure daily. If blood pressure remains less than 130/80 patient may not require any medication. If blood pressure remains above 140/90 medication may need to be restarted. This can be done with the help of his PCP. Vital Signs/Physical Exam: Temp Pulse Resp BP Pulse Ox 98.0 F 67 16 131/87 99 05/18/21 12:00 05/18/21 12:00 05/18/21 12:00 05/18/21 12:00 05/18/21 12:00 General: Alert, In no apparent distress, Oriented x3, Cooperative HEENT: Atraumatic Neck: Supple Respiratory: Clear to auscultation bilaterally, Normal air movement Cardiovascular: Normal pulses, Regular rate/rhythm Gastrointestinal: Normal bowel sounds, No ascites, No tenderness, No masses, No rebound, No guarding Musculoskeletal: No erythema, No tenderness, No warmth Integumentary: No tenderness/swelling, No erythema, No warmth, No cyanosis Neurological: Normal speech, Normal strength at 5/5 x4 extr, Normal tone Laboratory Data at Discharge: WBC 4.10 K/uL (4.3-10.9) L D 05/18/21 03:37 Hgb 9.8 g/dL (13.6-17.9) L 05/18/21 03:37 Hct 29.1 % (39.6-49.0) L 05/18/21 03:37 Plt Count 114 K/uL (152-406) L D 05/18/21 03:37 PT 12.1 SECONDS (9.5-12.5) 05/15/21 04:15 INR 1.05 05/15/21 04:15 APTT 33.1 SECONDS (24.3-36.9) 05/15/21 04:15 Sodium 139 mmol/L (136-145) 05/18/21 03:37 Potassium 3.9 mmol/L (3.5-5.1) 05/18/21 03:37 BUN 3 mg/dL (7-18) L 05/18/21 03:37 Creatinine 0.71 mg/dL (0.55-1.3) 05/18/21 03:37 Glucose 99 mg/dL (74-106) 05/18/21 03:37 Magnesium 1.9 mg/dL (1.8-2.4) 05/18/21 03:37 Total Bilirubin 1.0 mg/dL (0.2-1.0) 05/18/21 03:37 AST 47 U/L (15-37) H 05/18/21 03:37 ALT 51 U/L (12-78) 05/18/21 03:37 Alkaline Phosphatase 52 U/L (45-117) 05/18/21 03:37 Triglycerides 757 mg/dL (<150) H 05/16/21 03:10 Cholesterol 399 mg/dL (<200) H 05/15/21 07:12 Cholesterol Cancelled 05/15/21 07:12 LDL Cholesterol Direct 96 mg/dL (100-129) L 05/16/21 03:10 HDL Cholesterol 24 mg/dL (40-60) L 05/15/21 07:12 HDL Cholesterol Cancelled 05/15/21 07:12 Cholesterol/HDL Ratio 16.63 05/15/21 07:12 Cholesterol/HDL Ratio Cancelled 05/15/21 07:12 Amylase 157 U/L (25-115) H 05/14/21 16:29 Lipase 733 U/L (73-393) H 05/18/21 03:37 Home Medications: Docosahexanoic AC/Epa [Fish Oil 1,000 MG*] 2,000 mg PO TID #120 cap 05/18/21 Docusate [Colace Cap*] 100 mg PO DAILY #30 cap 05/18/21 Pantoprazole [Protonix Tab*] 40 mg PO DAILYAC #30 tab 05/18/21 gemfibroziL [Lopid*] 600 mg PO BID #60 tab 05/18/21 traMADol HCL [Ultram*] 50 mg PO TID PRN #10 tab 05/18/21 New Medications: Docusate [Colace Cap*] 100 mg PO DAILY #30 cap Docosahexanoic AC/Epa [Fish Oil 1,000 MG*] 2,000 mg PO TID #120 cap gemfibroziL [Lopid*] 600 mg PO BID #60 tab Pantoprazole [Protonix Tab*] 40 mg PO DAILYAC #30 tab traMADol HCL [Ultram*] 50 mg PO TID PRN #10 tab PRN Reason: Pain Scale 2-4 (Mild) Physician Discharge Instructions: Patient presented with abdominal pain secondary to acute hypertriglyceridemia pancreatitis. Patient also with elevated liver function. The patient was admitted for treatment. Patient required IV insulin to help treat his hypertriglyceridemia. The patient was transitioned off insulin and improved. Patient required medication for pain. Patient received IV fluids. Patient also had anemia with thrombocytopenia likely related to his pancreatitis. This has remained stable and improved. At discharge patient has tolerated his GI soft diet. Patient without significant pain. At discharge the patient will continue with Lopid 600 mg 1 pill twice daily and fish oil 2000 mg twice daily. Patient will be given a limited supply of tramadol 50 mg 1 pill 3 times a day as needed for pain. Patient should follow-up with PCP within 1 week to follow-up hospitalization. Recommend to establish care with GI as an outpatient to further address and monitor. Recommend to recheck fasting lipid panel and CMP in 1 to 2 weeks to monitor his progress. Patient with GERD. At discharge patient will continue with Protonix 40 mg daily. Patient with history of hypertension. Patient did not require medication at this time. Recommend to hold lisinopril. Recommend to monitor blood pressure daily. If blood pressure remains less than 130/80 patient may not require any medication. If blood pressure remains above 140/90 medication may need to be restarted. This can be done with the help of his PCP. Diet: gi soft Activity: Ad mike Time spent managing pt's care (in minutes): 55
[2021-05-19] MEDS ORDERED: PANTOPRAZOLE 40MG TABLET PO SCH (06:30)
[2021-05-20 13:22] LABS: HBsAG Nonreactive (Nonreactive)
== END 2021-05-18 14:25 | disposition home or self-care (01) | DRG 440 ==
LOC: ER 09:40 → SUPCPDRO 09:40 → ERHOLD 14:07 → UNDOADMIN 14:07 → ERHOLD 20:25 → 2ND 20:25 → ERHOLD 23:59 → 2ND 23:59 → 4TH 05-15 19:26
PROVIDERS: ADMIT Hospitalist; ATTEND Hospitalist
DX: K85.90 Acute pancreatitis without necrosis or infection, unspecified (principal); E78.1 Pure hyperglyceridemia; D64.9 Anemia, unspecified; D69.6 Thrombocytopenia, unspecified; R79.89 Other specified abnormal findings of blood chemistry; I10 Essential (primary) hypertension; K21.9 Gastro-esophageal reflux disease without esophagitis; Z23 Encounter for immunization; Z20.822 Contact with and (suspected) exposure to COVID-19
CPT/HCPCS: 36415; 74177; 80048; 80053; 80061; 80074; 80076; 81003; 82150; 82565; 82607; 82728; 82947; 83540; 83615; 83690; 83735; 84132; 84466; 84478; 85025; 85610; 85730; 86140; 90471; 94010; 96361; 96374; 96375; 99283; C9113; J1170; J1650; J2270; J2405; J3411; J3475; J7030; J7042; J7120; Q2035; Q9967; U0003

== ENCOUNTER 2021-07-18 13:26 | Emergency (ER) | payer OTHER ==
--- OUTSIDE RECORDS SUMMARY | 2021-07-18 13:28 | XMS REPORT | Continuity of Care Document ---
:1980 Author Organization [facility] t Address [address] [place] [address] Care Team Providers Name Role Phone Obed ORR Attending Clinician Unavailable Naa CASH Attending Clinician Obed ORR Admitting Clinician Unavailable Payers Payer Name Policy Type Policy Number Effective Date Expiration Date S ource Problems This patient has no known problems. Allergies, Adverse Reactions, Alerts This patient has no known allergies or adverse reactions. Social History Social Habit Start Date Stop Date Quantity Comments Source Alcohol intake [facility] History [facility] Alcohol [facility] or [facility] Std Drinks Medicine History [facility] Alcohol [facility] or [facility] Binge Medicine Sex Assigned At [facility] llege of Medicine History [facility] Alcohol 2019-03-23 2019-03-23 1 [facility] Frequency 00:00:00 00:00:00 Medicine Smoking Status Start Date Stop Date Source Former smoker 2019-03-24 00:00:00 2019-03-24 00:00:00 [facility] Medications Ordered Filled Start Stop Current Ordering Indication Dosage Frequency Signature Comments Components Source Medication Medication Date Date Medication? Clinician (SIG) Name Name diazePAM 10 2019- Yes diazepam Ba ylor MG/2ML SOAJ 8-19 10mg [place] 20:31: suppositor of 04 ies UNWRAP Medicin AND INSERT e 1 SUPPOSITOR Y RECTALLY AT BEDTIME OTHERWISE DIRECTED BY YOUR PHYSICIAN pregabalin 2018- Yes 75 mg = 1 Ba ylor (LYRICA) 75 8-10 cap, PO, Emily ege MG capsule 00:00: Q12H, # 60 o f 00 cap, 0 Medicin Refill(s) e gabapentin 2019- No 800mg 800 mg. Ba ylor (NEURONTIN) 03-14 College 800 MG 00:00: 04:59 of tablet 00 :00 Medicin e Vortioxetin 2018- Yes Trintellix [facility] HBr 03-13 20 mg College (TRINTELLIX 00:00: tablet of ) 20 MG 00 TAKE ONE Medicin TABS (1) e TABLET(S) BY MOUTH ONCE A DAY. omeprazole 2018- Yes TAKE ONE [place] demetra (PRILOSEC) 01-21 (1) [place] 40 MG 00:00: CAPSULE(S) of capsule 00 BY MOUTH Medicin EVERY DAY. e Vital Signs Vital Name Observation Time Observation Value Comments Source Systolic blood 2019-03-23 20:26:00 147 mm[Hg] [facility] Medicine Diastolic blood 2019-03-23 20:26:00 92 mm[Hg] [facility] Medicine Heart rate 2019-03-23 20:26:00 68 /min [facility] Body temperature 2019-03-23 20:26:00 37.11 Trudy [facility] Respiratory rate 2019-03-23 20:26:00 16 /min [facility] Body height 2019-03-23 20:26:00 190.5 cm [facility] Body weight 2019-03-23 20:26:00 99.247 kg [facility] BMI 2019-03-23 20:26:00 27.35 kg/m2 [facility] Procedures This patient has no known procedures. Plan of Care Planned Activity Planned Date Details Comments Source Future Scheduled Test BMI FOLLOW UP PLAN [facility] [code = BMI FOLLOW UP Medici ne PLAN] Future Scheduled Test HIV SCREENING [code = [facility] HIV SCREENING] Medicine Future Scheduled Test FLU VACCINE > 6 [facility] MONTHS [code = FLU Medicine VACCINE > 6 MONTHS] Future Scheduled Test TETANUS SHOT (ADULT) [facility] [code = TETANUS SHOT Medicin e (ADULT)] Encounters Start End Encounter Admission Attending Care Care Encounter Source Date/Time Date/Time Type Type Clinicians Facility Department ID 2019-09-24 2019-09-27 Inpatient E DOMINGA YEVGENIY [facility] [id number] 14:38:00 14:35:00 SUNILI stanley angel 2019-06-26 2019-06-26 Emergency E [facility] [id number] 18:55:00 18:55:00 stanley angel 2019-03-23 2019-03-23 Office Chuy Jacome [facility] [id number] [facility] 14:40:31 16:57:52 Visit AMBULATOR [id number] College Y [id number] [facility] 805 e 2019-03-13 2019-03-13 Outpatient E [facility] [id number] 15:55:00 15:55:00 stanley angel 2019-02-23 2019-02-23 Emergency E [facility] [id number] 22:44:00 22:44:00 stanley angel Results This patient has no known results.
[2021-07-18] MEDS ORDERED: Ringers Lactate 1,000 ML IV ONE (15:28)
[2021-07-18 15:45] LABS: Absolute Lymphocytes (CBC) 1.6 K/uL (0.7-4.9); Basophils % 1.8 % (0-1.3); Hematocrit 41.9 % (39.6-49.0); Lymphocytes % 29.1 % (15.3-44.8); MPV 7.3 fL (7.6-11.3); RBC Red Blood Cell Count 4.61 M/uL (4.33-5.43)
[2021-07-18 16:07] LABS: Bilirubin Direct 0.3 mg/dL (0-0.2); Bilirubin Total 1.1 mg/dL (0.2-1.0); Protein, Total 8.3 g/dL (6.4-8.2)
[2021-07-18] MEDS ORDERED: MORPHINE 4 MG/ML SYR ONE (16:29)
[2021-07-18] MEDS ORDERED: ONDANSETRON 4 MG/2 ML VIAL ONE ×2 (16:29→17:10)
--- NOTE | 2021-07-18 17:20 | RAD REPORT ---
EXAM DESCRIPTION: CTAbdomen Pelvis W Contrast - 07/18/2021 4:56 pm CLINICAL HISTORY: Abdominal pain. ABD PAIN COMPARISON: Abdomen Pelvis W Contrast dated 05/14/2021 TECHNIQUE: Biphasic CT imaging of the abdomen and pelvis was performed with 100 ml non-ionic IV cont rast. All CT scans are performed using dose optimization technique as appropriate and may include automated exposure control or mA/KV adjustment according to patient size. FINDINGS: The lung bases are clear.Postsurgical changes are present about the stomach. Mild diffuse fatty liver is present. The spleen, pancreas, adrenal glands and kidneys are within norm al limits. 16 mm benign cyst right kidney is noted. No bowel obstruction, free air, free fluid or abscess. The appendix is normal. No evidence of signi ficant lymphadenopathy. No suspicious bony findings. IMPRESSION: No acute intra-abdominal or pelvic finding.
--- NOTE | 2021-07-18 17:40 | EDPHYS ---
Physician Documentation [facility] Name: Aaron Hernandez Age: 40 yrs Sex: Male : 1980 Arrival Date: 07/18/2021 Time: 13:29 Bed 27 Private MD: ED Physician Lambert Vásquez HPI: 07/18 15:20 This 40 yrs old Male presents to ER via Ambulatory with complaints of Abdominal Pain, jmm Nausea, kidney pain. 15:20 The patient presents with abdominal pain. Onset: The symptoms/episode began/occurred jmm gradually, 2 day(s) ago. The symptoms do not radiate. Associated signs and symptoms: Pertinent positives: nausea and vomiting. The symptoms are described as achy. Modifying factors: The symptoms are alleviated by nothing, the symptoms are aggravated by alcohol. 40-year-old male with history of pancreatitis the presents emerged department with complaints of epigastric abdominal pain nausea vomiting which has been ongoing for approximately 3 days now. Patient states he has been drinking recently. Denies diarrhea.. Historical: - Allergies: 15:15 No Known Allergies; sparks - Immunization history:: Adult Immunizations up to date, Client reports receiving the 2nd dose of the Covid vaccine. - Social history:: Smoking status: Patient denies any tobacco usage or history of. ROS: 15:20 Constitutional: Negative for fever, chills, and weight loss, Cardiovascular: Negative jmm for chest pain, palpitations, and edema, Respiratory: Negative for shortness of breath, cough, wheezing, and pleuritic chest pain. 15:20 Abdomen/GI: Positive for abdominal pain. 15:20 All other systems are negative. Exam: 15:20 Constitutional: This is a well developed, well nourished patient who is awake, alert, jmm and in no acute distress. Head/Face: atraumatic. Eyes: EOMI, no conjunctival erythema appreciated ENT: Moist Mucus Membranes Neck: Trachea midline, Supple Chest/axilla: Normal chest wall appearance and motion. Cardiovascular: Regular rate and rhythm. No edema appreciated Respiratory: Normal respirations, no respiratory distress appreciated 15:20 Back: Normal ROM Skin: General appearance color normal MS/ Extremity: Moves all extremities, no obvious deformities appreciated, no edema noted to the lower extremities Neuro: Awake and alert, normal gait Psych: Behavior is normal, Mood is normal, Patient is cooperative and pleasant 15:20 Abdomen/GI: Inspection: abdomen appears normal, Bowel sounds: normal, Palpation: soft, in the epigastric area, right upper quadrant and left upper quadrant, mild abdominal tenderness. Vital Signs: 13:41 BP 153 / 112; Pulse 92; Resp 20; Temp 98.2(O); Pulse Ox 100% ; Weight 95.25 kg; Height jh6 6 ft. 3 in. (190.50 cm); Pain 10/10; 15:15 BP 155 / 126; Pulse 74; Resp 18; Pulse Ox 99% ; sparks 16:20 BP 146 / 99; Pulse 72; Resp 18; Pulse Ox 99% ; sparks 13:41 Body Mass Index 26.25 (95.25 kg, 190.50 cm) 6 MDM: 15:20 Patient medically screened. [facility] 17:37 Data reviewed: vital signs, nurses notes. Counseling: I had a detailed discussion with violeta the patient and/or guardian regarding: the historical points, exam findings, and any diagnostic results supporting the discharge/admit diagnosis, lab results, radiology results, the need for outpatient follow up, to return to the emergency department if symptoms worsen or persist or if there are any questions or concerns that arise at home. ED course: Pain is decreased in the ED. Patient advised to have a clear liquid diet for the next few days. Advised follow-up with gastroenterology otherwise given strict return precautions. Patient understood agrees plan of care.. 07/18 15:21 Order name: Basic Metabolic Panel; Complete Time: 16:15 [facility] 07/18 15:21 Order name: CBC with Diff; Complete Time: 15:57 [facility] 07/18 15:21 Order name: Hepatic Function; Complete Time: 16:15 [facility] 07/18 15:21 Order name: Lipase; Complete Time: 16:15 [facility] 07/18 15:21 Order name: CT Abd/Pelvis - IV Contrast Only; Complete Time: 17:24 [facility] 07/18 15:21 Order name: IV Saline Lock; Complete Time: 15:43 [facility] 07/18 15:21 Order name: Labs collected and sent; Complete Time: 15:43 [facility] Administered Medications: 15:42 Drug: Lactated Ringers Solution 1000 ml Route: IV; Rate: 1000 bolus; Site: right sparks antecubital; 16:35 Drug: morphine 4 mg Route: IVP; Site: right antecubital; iw 16:35 Drug: Zofran (Ondansetron) 2 mg Route: IVP; Site: right antecubital; iw 17:17 Drug: Zofran (Ondansetron) 4 mg Route: IVP; Site: right antecubital; iw Disposition: 19:00 Co-signature as Attending Physician, Lambert Vásquez MD I agree with the assessment and rn plan of care. Attestation: The patient's history, exam findings, diagnostics, and a summary of any interventions or procedures was reviewed in detail with Wily WONG. Disposition Summary: 07/18/21 17:39 Discharge Ordered Location: Home [facility] Condition: Stable jmm Diagnosis - Upper abdominal pain, unspecified jmm Followup: jm - With: Sebastián White MD - When: 2 - 3 days - Reason: Recheck today's complaints, Continuance of care, Re-evaluation by your physician Discharge Instructions: - Discharge Summary Sheet jm - Abdominal Pain, Adult jmm - Clear Liquid Diet, Adult [facility] Forms: - Medication Reconciliation Form [facility] - Thank You Letter [facility] - Antibiotic Education [facility] - Prescription Opioid Use [facility] - Work release form Prescriptions: - ondansetron 4 mg Oral tablet,disintegrating - take 1 tablet by ORAL route every 4-6 hours; 20 tablet; Refills: 0, Product [facility] Selection Permitted - Pepcid 20 mg Oral Tablet - take 1 tablet by ORAL route every 12 hours for 10 days; 20 tablet; Refills: 0, [facility] Product Selection Permitted - dicyclomine 20 mg Oral Tablet - take 1 tablet by ORAL route 4 times per day; 30 tablet; Refills: 0, Product [facility] Selection Permitted Signatures: Dispatcher [employer] EDNY Wily Dean PA PA [facility] Avril Valadez, RN JOSE L Lambert Vásquez MD MD rn Smirch, Shelby, RN RN ss Hastedt, Jennifer, RN RN [facility] Savi Rosales Corrections: (The following items were deleted from the chart) 13:44 13:44 PMHx: Hypertensive disorder; [place] [id number] 13:44 13:44 PMHx: gastritis; [place] [id number]
--- NOTE | 2021-07-18 17:40 | ER ---
Nurse's Notes [facility] Name: Aaron Hernandez Age: 40 yrs Sex: Male : 1980 Arrival Date: 07/18/2021 Time: 13:29 Bed 27 Private MD: Diagnosis: Upper abdominal pain, unspecified Presentation: 07/18 13:41 Chief complaint: Patient states: upper abd pain with hx of pancreatitis. nausea started jh6 yesterday and pain this am. Coronavirus screen: Vaccine status: Patient reports receiving the 2nd dose of the covid vaccine. Ebola Screen: No symptoms or risks identified at this time. Initial Sepsis Screen: Does the patient meet any 2 criteria? No. Patient's initial sepsis screen is negative. Does the patient have a suspected source of infection? Yes: No. Patient's initial sepsis screen is negative. Risk Assessment: Do you want to hurt yourself or someone else? Patient reports no desire to harm self or others. Onset of symptoms was July 17, 2021. 13:41 Method Of Arrival: Ambulatory [facility] 13:41 Acuity: ALIYAH 3 jh6 Triage Assessment: 13:44 General: Appears distressed, uncomfortable, well groomed, Behavior is cooperative, jh6 restless. Pain: Complains of pain in epigastric area Pain does not radiate. Pain currently is 8 out of 10 on a pain scale. Quality of pain is described as sharp, stabbing, Pain began suddenly, Is continuous. GI: Abdomen is tender to palpation in epigastric area. Historical: - Allergies: 15:15 No Known Allergies; sparks - Immunization history:: Adult Immunizations up to date, Client reports receiving the 2nd dose of the Covid vaccine. - Social history:: Smoking status: Patient denies any tobacco usage or history of. Screenin:15 Abuse screen: Denies threats or abuse. Denies injuries from another. Nutritional sparks screening: nausea and cant tolerate eating x2days. Tuberculosis screening: No symptoms or risk factors identified. Fall Risk None identified. Assessment: 15:15 GI: Reports upper abdominal pain, cramping, nausea, Pain is 9 out of 10 on a pain sparks scale. since x2days. 15:17 Reassessment: pt reported that he has a hx of pancreatitis. pt stated that he had been sparks drink ETOH and eating bad from holiday parties recently. last time pt had a alcoholic drink was 2 days ago. 16:20 GI: Bowel sounds present X 4 quads. sparks 17:22 Reassessment: Patient appears in no apparent distress at this time. Patient and/or iw family updated on plan of care and expected duration. Pain level reassessed. Patient is alert, oriented x 3, equal unlabored respirations, skin warm/dry/pink. pt back from Ct. reports increased nausea, Wily,. Pa notified , pt medicted with Zofran 4 mg IVP. Vital Signs: 13:41 BP 153 / 112; Pulse 92; Resp 20; Temp 98.2(O); Pulse Ox 100% ; Weight 95.25 kg; Height 6 6 ft. 3 in. (190.50 cm); Pain 10/10; 15:15 BP 155 / 126; Pulse 74; Resp 18; Pulse Ox 99% ; sparks 16:20 BP 146 / 99; Pulse 72; Resp 18; Pulse Ox 99% ; sparks 13:41 Body Mass Index 26.25 (95.25 kg, 190.50 cm) [facility] ED Course: 13:29 Patient arrived in ED. am2 13:44 Triage completed. [facility] 13:45 Arm band placed on right wrist. [facility] 15:13 Wily Dean PA is PHCP. [facility] 15:13 Lambert Vásquez MD is Attending Physician. [facility] 15:15 Patient has correct armband on for positive identification. Bed in low position. sparks 15:15 No provider procedures requiring assistance completed. sparks 15:33 Avril Valadez, RN is Primary Nurse. iw 15:43 Basic Metabolic Panel Sent. sparks 15:43 CBC with Diff Sent. sparks 15:43 Hepatic Function Sent. sparks 15:43 Lipase Sent. sparks 15:43 Inserted saline lock: 18 gauge in right antecubital area, using aseptic technique. sparks Blood collected. 16:56 CT Abd/Pelvis - IV Contrast Only In Process Unspecified. EDMS 17:39 Sebastián White MD is Referral Physician. m Administered Medications: 15:42 Drug: Lactated Ringers Solution 1000 ml Route: IV; Rate: 1000 bolus; Site: right sparks antecubital; 16:35 Drug: morphine 4 mg Route: IVP; Site: right antecubital; iw 16:35 Drug: Zofran (Ondansetron) 2 mg Route: IVP; Site: right antecubital; 17:17 Drug: Zofran (Ondansetron) 4 mg Route: IVP; Site: right antecubital; Outcome: 17:39 Discharge ordered by MD. mcdaniel 17:52 Patient left the ED. Signatures: Dispatcher [employer] EDMS Wily Dean PA PA jmm Williams, Irene, RN RN Jyotsna Bennett Jennifer, RN RN jh6 Savi Rosales Corrections: (The following items were deleted from the chart) 13:44 13:44 PMHx: Hypertensive disorder; [facility] jh6 13:44 13:44 PMHx: gastritis; [facility] jh6
[2021-07-18 18:26] VITALS: TEMP 98.2
[2021-07-18 18:27] VITALS: O2SAT 99
[2021-07-18 18:29] VITALS: BP 146/99
== END 2021-07-18 17:52 | disposition home or self-care (01) ==
LOC: ER 13:26
DX: R10.13 Epigastric pain (principal)
CPT/HCPCS: 85025; 80048; 36415; 80076; 83690; 74177; Q9967; J7120; J2405 ×2; 96374; 96375; 99284